=== PATIENT | female | born 2000 | race Caucasian/White ===

== ENCOUNTER 2021-11-03 01:05 | Inpatient (IN) | payer OTHER ==
[2021-11-03] MEDS ORDERED: SODIUM CHLORIDE 0.9% 500 ML INFUS.BAG IV ONE (02:03)
[2021-11-03] MEDS ORDERED: ACETAMINOPHEN 1000 MG/100 ML BAG IVPB ONE (02:03)
[2021-11-03 03:16] LABS: URINE APPEARANCE CLEAR; URINE BILIRUBIN NEGATIVE (NEGATIVE); URINE COLOR YELLOW; URINE GLUCOSE (UA) NEGATIVE (NEGATIVE); URINE KETONE NEGATIVE (NEGATIVE); URINE LEUK ESTERASE NEGATIVE (NEGATIVE); URINE NITRITE NEGATIVE (NEGATIVE); URINE PROTEIN NEGATIVE (NEGATIVE); URINE UROBILINOGEN 0.2 mg/dL (0.2-1.0)
[2021-11-03 03:17] LABS: HEMATOCRIT 39.4 % (32.4-45.2); HEMOGLOBIN 12.6 GM/dL (10.7-15.3); MCH 28.5 pg (25.7-33.7); MCHC 32.1 g/dl (32.0-36.0); MEAN CELL VOLUME 88.7 fl (80-96); MEAN PLT VOLUME 8.4 fl (7.5-11.1); PLATELET COUNT 415 10^3/uL (134-434); RBC 4.44 M/mm3 (3.60-5.2); WHITE BLOOD COUNT 27.4 K/mm3 (4.0-10.0)
[2021-11-03 03:36] LABS: CALCIUM 9.6 mg/dL (8.5-10.1)
[2021-11-03 03:37] LABS: ALBUMIN 3.6 g/dl (3.4-5.0); BLOOD UREA NITROGEN 15.4 mg/dL (7-18)
[2021-11-03 03:40] LABS: CREATININE 0.8 mg/dL (0.55-1.3)
[2021-11-03 03:41] LABS: BILIRUBIN,TOTAL 0.4 mg/dL (0.2-1)
[2021-11-03] MEDS ORDERED: CLINDAMYCIN 600MG PREMIX IVPB 600 MG/50 ML BAG IVPB ONE ×2 (04:05→05:23)
[2021-11-03] MEDS ORDERED: SODIUM CHLORIDE 1,000 ML IV SCH (08:00)
[2021-11-03] MEDS ORDERED: ENOXAPARIN NA (PORCINE) 40 MG/0.4 ML DISP.SYRIN SQ ONE (08:53)
[2021-11-03] MEDS: ENOXAPARIN NA (PORCINE) 40 MG/0.4 ML DISP.SYRIN SQ SCH (09:01)
[2021-11-03] MEDS ORDERED: CLINDAMYCIN 300 MG PREMIX IVPB 300 MG/50 ML BAG IVPB SCH (10:00)
[2021-11-03 10:24] VITALS: BMI 25.3
[2021-11-03] MEDS ORDERED: ceFAZolin 2 GRAM PREMIX BAG IVPB SCH (11:00)
[2021-11-03] MEDS: CEFAZOLIN 2 GM in DEXTROSE 5%-WATER - 100 ML IVPB SCH ×2 (11:50→17:23)
[2021-11-03 16:38] LABS: BODY FLUID MACROPHAGES 22 %
[2021-11-04] MEDS: CEFAZOLIN 2 GM in DEXTROSE 5%-WATER - 100 ML IVPB SCH ×3 (02:06→18:36)
[2021-11-04 08:49] LABS: BASO % 0.8 % (0-2.0); HEMATOCRIT 36.6 % (32.4-45.2); HEMOGLOBIN 11.9 GM/dL (10.7-15.3); LYMPH % 21.7 % (8-40); MCH 28.9 pg (25.7-33.7); MCHC 32.5 g/dl (32.0-36.0); MEAN PLT VOLUME 8.5 fl (7.5-11.1); MONO % 7.6 % (3.8-10.2); NEUT % 64.9 % (42.8-82.8); PLATELET COUNT 355 10^3/uL (134-434); RBC 4.11 M/mm3 (3.60-5.2); RDW 14.6 % (11.6-15.6); WHITE BLOOD COUNT 11.3 K/mm3 (4.0-10.0)
[2021-11-04 09:14] LABS: CALCIUM 9.2 mg/dL (8.5-10.1)
[2021-11-04 09:15] LABS: BLOOD UREA NITROGEN 9.3 mg/dL (7-18); MAGNESIUM 2.1 mg/dL (1.8-2.4)
[2021-11-04 09:18] LABS: CREATININE 0.7 mg/dL (0.55-1.3); PHOSPHOROUS 4.4 mg/dL (2.5-4.9)
[2021-11-04 09:19] LABS: BILIRUBIN,TOTAL 0.4 mg/dL (0.2-1); TOT PROT 6.9 g/dl (6.4-8.2)
[2021-11-04] MEDS: ENOXAPARIN NA (PORCINE) 40 MG/0.4 ML DISP.SYRIN SQ SCH (09:43)
[2021-11-05] MEDS: CEFAZOLIN 2 GM in DEXTROSE 5%-WATER - 100 ML IVPB SCH ×2 (01:52→10:53)
[2021-11-05] MEDS: ENOXAPARIN NA (PORCINE) 40 MG/0.4 ML DISP.SYRIN SQ SCH (10:53)
[2021-11-05 11:24] VITALS: BP 98/65; PULSE 58; TEMP 97.8
== END 2021-11-05 14:29 | disposition home or self-care (01) | DRG 561 ==
LOC: JER 01:05 → INTOOBSV 04:07 → UNDOADMOB 04:07 → JERBED 04:07 → J5S 09:38 → JERBED 09:52 → OBSVTOIN 11-05 08:47
PROVIDERS: ADMIT Internal Medicine; ATTEND Internal Medicine
DX: O91.13 Abscess of breast associated with lactation (principal); D72.829 Elevated white blood cell count, unspecified; R50.9 Fever, unspecified
CPT/HCPCS: 0241U-QW; 36415; 71046-TC-FY; 76641-TC-RT; 80053; 81003; 83735; 84100; 85025; 87040; 87070; 87075; 87086; 87186; 87205; 93005; 93010; 99285-25; G0378

== ENCOUNTER 2023-11-03 00:05 | Emergency (ER) | payer OTHER ==
[2023-11-03 00:20] VITALS: BP 100/69; PULSE 66; RESP 18; TEMP 98.4; BMI 23.8
[2023-11-03] MEDS ORDERED: FAMOTIDINE 20 MG TABLET ONE (02:03)
[2023-11-03] MEDS: MAG HYDROX/AL HYDROX/SIMETH -MYLANTA- ORAL SUSPENSION PO ONE (02:20)
[2023-11-03] MEDS: PANTOPRAZOLE 20 MG TABLET PO ONE (02:20)
== END 2023-11-03 02:20 | disposition home or self-care (01) ==
LOC: JER 00:05
DX: K29.70 Gastritis, unspecified, without bleeding (principal); R10.13 Epigastric pain; R11.2 Nausea with vomiting, unspecified
CPT/HCPCS: 76705-TC; 99284-25